=== PATIENT | male | born 1980 | race African-American/Black ===

== ENCOUNTER 2017-11-18 11:51 | Emergency (ER) | payer SELFPAY ==
[2017-11-18 12:38] LABS: Bilirubin Negative (Negative); Blood, Urine Negative (Negative); Clarity CLEAR (Clear); Glucose, Urine (Dipstick) Negative (Negative); Leukocyte Negative (Negative); Nitrite Negative (Negative); Protein, Urine (Dipstick) Negative (Neg-Trace); Specific Gravity, Urine 1.025 (1.002-1.036)
[2017-11-18] MEDS ORDERED: cefTRIAXone\\ROCEPHIN 250 MG VIAL ONE (13:18)
[2017-11-18] MEDS ORDERED: Lidocaine 1% PF 5 ML VIAL ONE (13:18)
[2017-11-18] MEDS ORDERED: Azithromycin 250 MG TAB ONE (13:18)
[2017-11-20 01:24] LABS: Chlamydia by PCR Not Detected (NotDetected); GC by PCR Not Detected (NotDetected)
== END 2017-11-18 14:12 | disposition home or self-care (01) ==
LOC: ERS 11:51
DX: N34.2 Other urethritis (principal); F17.210 Nicotine dependence, cigarettes, uncomplicated; Z71.6 Tobacco abuse counseling
CPT/HCPCS: 81003; 87086; 87491; 87591; 96372; 99406; J0696; J2001

== ENCOUNTER 2018-10-03 16:57 | Emergency (ER) | payer SELFPAY ==
[2018-10-03] MEDS ORDERED: cefTRIAXone\\ROCEPHIN 250 MG VIAL ONE (17:52)
[2018-10-03] MEDS ORDERED: Azithromycin 250 MG TAB ONE (17:52)
[2018-10-03] MEDS ORDERED: Lidocaine 1% (PF) 30 ML VIAL ONE (17:52)
[2018-10-03 17:58] LABS: Bilirubin Small (Negative); Blood, Urine Negative (Negative); Clarity CLEAR (Clear); Glucose, Urine (Dipstick) Negative (Negative); Leukocyte Small (Negative); Nitrite Negative (Negative); Protein, Urine (Dipstick) 30 mg/dL (Neg-Trace); Specific Gravity, Urine 1.035 (1.002-1.036); pH, Urine 5.5 (5.0-9.0)
[2018-10-03 18:01] LABS: Bacteria/HPF None Seen HPF (None Seen); Pathc Cast-AUWi Flag 1.74 (0-2.49); RBC/HPF 0-3 HPF (0-3); Squamous Epithelial 0-3 HPF (0-3)
[2018-10-03 18:18] LABS: Crystals/HPF None Seen HPF (Negative); Other Casts/LPF None Seen LPF (0-3 Hyaline); Oval Fat Bodies/HPF None Seen HPF (None Seen); Renal Epithelial None Seen HPF (0-3); Sperm/HPF Rare HPF (None Seen); Transitional Epithelial NONE SEEN HPF (0-3); Trichomonas/HPF None Seen HPF (None Seen)
[2018-10-04 23:02] LABS: Chlamydia by PCR Not Detected (NotDetected); GC by PCR Not Detected (NotDetected)
== END 2018-10-03 19:03 | disposition home or self-care (01) ==
LOC: ERS 16:57
DX: A64 Unspecified sexually transmitted disease (principal); F17.210 Nicotine dependence, cigarettes, uncomplicated
CPT/HCPCS: 81003; 81015; 87491; 87591; 96372; J0696; J2001

== ENCOUNTER 2019-03-14 18:30 | Emergency (ER) | payer SELFPAY ==
[2019-03-14] MEDS ORDERED: Lidocaine 1% w/Epinephrine 1:100K 20 ML VIAL ONE (19:40)
== END 2019-03-14 20:15 | disposition home or self-care (01) ==
LOC: ERS 18:30
DX: L02.212 Cutaneous abscess of back [any part, except buttock and flank] (principal); F17.210 Nicotine dependence, cigarettes, uncomplicated
CPT/HCPCS: 10060; J2001

== ENCOUNTER 2019-04-05 15:28 | Emergency (ER) | payer SELFPAY | END 2019-04-05 15:56 | disposition home or self-care (01) | LOC: ERS 15:28 → EEVIPCON 15:28 → ERS 15:56 | DX: R45.1 Restlessness and agitation (principal); F17.210 Nicotine dependence, cigarettes, uncomplicated | CPT/HCPCS: 99284 ==